=== PATIENT | female | born 1970 | race Caucasian/White ===

== ENCOUNTER 2016-07-01 12:36 | Emergency (ER) | payer SELFPAY ==
[~2016-07-01] VITALS: Wt 72.5 kg
[~2016-07-01 12:36] MED LIST: CYCL5TAB PO; HYDR-3498 PO
[2016-07-01] MEDS ORDERED: ONDANSETRON (ODT) 4 MG TAB ODT STA (14:06)
[2016-07-01] MEDS ORDERED: ACETAMINOPHEN 500 MG TAB PO STA (14:06)
[2016-07-01] MEDS ORDERED: ACET500C5 PO (15:56)
[2016-07-01] MEDS ORDERED: ONDA4TAB14 PO (15:57)
[2016-07-01] MEDS ORDERED: DICY10CA60 PO (15:57)
--- NOTE | 2016-07-01 16:13 | ERD ---
ER Documentation Chief Complaint Date/Time DATE: 07/01/16 TIME: 16:00 Chief Complaint VOMITING X2DAYS/LEFT ARM NUMBNESS/PAIN [id number] HPI Patient is a 45-year-old female who presents ot the emergency department for numerous concerns including left arm numbness and pain, nausea, vomiting and diarrhea. Patient states that her left arm numbness has been present for the last month however the numbness is getting worse. Patient states that initially she had the numbness in her fingers however now it is spreading up her left arm. Patient also reports pain in her left upper arm. 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 Patient denies any trauma or falls. Patient also complaining of chest pain for the last month. Patient also reports shortness of breath. She states this is been a chronic issue for the last year. Patient denies any cough, fever, chills, loss of consciousness. Patient also reports nausea, vomiting and diarrhea which started yesterday. Patient reports vomiting 20 times, nonbilious and nonbloody. Patient also reports diarrhea. Patient also states she has had diarrhea of 10-15 times. Patient states her last menstrual period was 7 days ago. She denies any recent travel or sick contacts. Patient denied any leg swelling, recent surgeries, travel, exogenous estrogen use. ROS All systems reviewed and are negative except as per history of present illness. Medications Home Meds Active Scripts Dicyclomine Hcl* (Bentyl*) 10 Mg Capsule, 10 MG PO QID, #20 CAP Prov:DAINA SILVEIRA PA-C 07/01/16 Ondansetron (Ondansetron Odt) 4 Mg Tab.rapdis, 4 MG PO Q6H Y for NAUSEA AND/OR VOMITING, #30 TAB Prov:DAINA SILVEIRA PA-C 07/01/16 Acetaminophen* (Tylophen*) 500 Mg Capsule, 1 CAP PO Q6H Y for PAIN AND OR ELEVATED TEMP, #20 CAP Prov:DAINA SILVEIRA PA-C 07/01/16 Cyclobenzaprine Hcl* (Cyclobenzaprine Hcl*) 5 Mg Tablet, 5 MG PO Q8H Y for mus, #21 TAB Prov:ELIESER ASHLEY NP 01/02/15 Hydrocodone Bit-Acetaminophen* ([place]*) 5-325 Mg Tab, 1 TAB PO Q6 Y for PAIN, # 20 TAB Prov:ELIESER ASHLEY SERVICE WRITER 01/02/15 Reported Medications [none] Unknown Strength No Conflict Check 01/02/15 Allergies Allergies: Coded Allergies: ibuprofen (Verified Allergy, Unknown, 01/02/15) PMhx/Soc Medical and Surgical Hx: pt denies Medical Hx, pt denies Surgical Hx History of Surgery: No Anesthesia Reaction: No Hx Neurological Disorder: No Hx Respiratory Disorders: No Hx Cardiac Disorders: No Hx Psychiatric Problems: No Hx Miscellaneous Medical Probl: No Hx Alcohol Use: Yes Hx Substance Use: No Hx Tobacco Use: No FmHx Family History: No diabetes Physical Exam Vitals Vital Signs Date Time Temp Pulse Resp B/P Pulse Ox O2 Delivery O2 Flow Rate FiO2 07/01/16 12:38 96.7 89 20 118/58 99 Physical Exam GENERAL: Well-developed, well-nourished male. Appears in no acute distress. HEAD: Normocephalic, atraumatic. No deformities or ecchymosis. EYE: Pupils equal, round, and reactive to light. EOMs intact. No conjunctival erythema. No eye discharge. ENT: External ear without any masses or tenderness. Auditory canals clear bilaterally. TM visualized bilaterally, non-erythematous, non-bulging. Nasal mucosa pink with no discharge. Oropharynx is pink without any tonsillar erythema or exudates. No uvula deviation. No kissing tonsils. NECK: Supple. No meningismus. Normal ROM of the neck. LUNG: Clear to auscultation bilaterally. No rhonchi, wheezing, rales or coarse breath sounds. HEART: Regular rate and rhythm. No murmurs, rubs or gallops. ABDOMEN: Soft, nontender, and nondistended. Positive bowel sounds in all four quadrants. No rebound tenderness, no guarding. (-) McBurney's point tenderness. No CVA tenderness. BACK: No midline tenderness. EXTREMITES: Equal pulses bilaterally. No peripheral clubbing, cyanosis or edema. No unilateral leg swelling. NEUROLOGIC: Alert and oriented to person, place and time. Moving all four extremities. 5/5 strength in all extremities. Normal speech. Steady gait. Equal snath handle assembler strength in bilateral hands. SILT in bilateral upper and lower extremities. Negative Phalen sign. SKIN: Normal color. Warm and dry. No rashes or lesions. Results 24 hrs Laboratory Tests Test 07/01/16 14:17 Troponin I < 0.012ng/ml Current Medications Medications (Trade) Dose Ordered Sig/Kaleb Route PRN Reason Start Time Stop Time Status Last Admin Dose Admin Ondansetron HCl (Zofran Odt) 4 mg ONCE STAT ODT 07/01/16 14:06 07/01/16 14:09 DC 07/01/16 14:20 Acetaminophen (Tylenol Tab) 1,000 mg ONCE STAT PO 07/01/16 14:06 07/01/16 14:09 DC 07/01/16 14:20 Procedures/MDM ED COURSE: The patient was stable throughout ED course. I kept the patient and/or family informed of laboratory and diagnostic imaging results throughout the ED course. EKG: Read by Dr. Pacheco, attending physician. EKG shows normal sinus rhythm at a rate of 76 bpm. No arrhythmias, acute ST elevations or T wave changes were noted. MEDICATIONS GIVEN: Zofran, Tylenol Patient tolerated medication well with no adverse reactions. Patient reported improvement in pain. MEDICAL DECISION MAKING: This is a 45-year-old female presents with numerous concerns including left arm numbness, nausea, vomiting, diarrhea and chest pain. Vital signs were reviewed. Patient was afebrile. Patient was not hypoxic. Cardiac exam was normal. Lung exam was normal. EKG was within normal limits. Trop was negative. Heart score calculated to be 1, low risk. Low suspicion for acute coronary syndrome, arrhythmia or pericarditis. Patient's nausea, vomiting and diarrhea are likely due to a viral syndrome. Low suspicion for appendicitis, SBO, diverticulitis, diverticulosis, UTI, pyelonephritis. I advised the patient that she will need to see her primary care physician for possible nerve conduction study on an outpatient basis for further management of her ongoing arm numbness. Low suspicion for fracture, dislocation, cubital tunnel syndrome, carpal tunnel syndrome. PRESCRIPTIONS: Tylenol, Bentyl, Zofran DISCHARGE: At this time, patient is stable for discharge and outpatient management. I have instructed the patient to follow-up with his/her primary care physician in 1-2 days. If symptoms persist, patient may need to see a specialist for further examinations and testing. I have instructed the patient to promptly return to the ER at any time for any new or worsening symptoms including increased increased pain, fever, nausea, vomiting, numbness, weakness, diaphoresis or LOC. The patient and/or family expressed understanding of and agreement with this plan. All questions were answered. Home care instructions were provided. Departure Diagnosis: Primary Impression: Nausea vomiting and diarrhea Additional Impression: Chest pain Chest pain type: unspecified Qualified Code: R07.9 - Chest pain, unspecified type Condition: Stable Patient Instructions: Chest Pain, Uncertain Cause, Gastroenteritis, Viral (6Y- Adult) Referrals: [facility], [facility] YOU HAVE RECEIVED A MEDICAL SCREENING EXAM AND THE RESULTS INDICATE THAT YOU DO NOT HAVE A CONDITION THAT REQUIRES URGENT TREATMENT IN THE EMERGENCY DEPARTMENT. FURTHER EVALUATION AND TREATMENT OF YOUR CONDITION CAN WAIT UNTIL YOU ARE SEEN IN YOUR DOCTORS OFFICE WITHIN THE NEXT 1-2 DAYS. IT IS YOUR RESPONSIBILITY TO MAKE AN APPOINTMENT FOR FOLOW-UP CARE. IF YOU HAVE A PRIMARY DOCTOR --you should call your primary doctor and schedule an appointment IF YOU DO NOT HAVE A PRIMARY DOCTOR YOU CAN CALL OUR PHYSICIAN REFERRAL HOTLINE AT IF YOU CAN NOT AFFORD TO SEE A PHYSICIAN YOU CAN CHOSE FROM THE FOLLOWING [facility] [address] [facility] [address] [facility]. [facility] [address] [facility] [address] [facility] [address] [facility]. [facility]. [address] [facility]. [facility] YOU HAVE RECEIVED A MEDICAL SCREENING EXAM AND THE RESULTS INDICATE THAT YOU DO NOT HAVE A CONDITION THAT REQUIRES URGENT TREATMENT IN THE EMERGENCY DEPARTMENT. FURTHER EVALUATION AND TREATMENT OF YOUR CONDITION CAN WAIT UNTIL YOU ARE SEEN IN YOUR DOCTORS OFFICE WITHIN THE NEXT 1-2 DAYS. IT IS YOUR RESPONSIBILITY TO MAKE AN APPOINTMENT FOR FOLOW-UP CARE. IF YOU HAVE A PRIMARY DOCTOR --you should call your primary doctor and schedule and appointment IF YOU DO NOT HAVE A PRIMARY DOCTOR YOU CAN CALL OUR PHYSICIAN REFERRAL HOTLINE AT . IF YOU CAN NOT AFFORD TO SEE A PHYSICIAN YOU CAN CHOSE FROM THE FOLLOWING [facility]: [facility] [address] [place] [address] [facility] [address] [place] [address] [facility] [address] [place] [address] Additional Instructions: Call your primary care doctor TOMORROW for an appointment during the next 1-2 days.See the doctor sooner or return here if your condition worsens before your appointment time. Patient will need to follow-up with a photogrammetric stereo compiler for ongoing chest pain and shortness of breath. Patient advised to see her primary care physician for referral. Stress EKG advised on outpatient basis. DAINA SILVEIRA PA-C July 01, 2016 16:12
== END 2016-07-01 16:10 | disposition home or self-care (01) ==
LOC: FTE 12:36
DX: R11.2 Nausea with vomiting, unspecified (principal); R19.7 Diarrhea, unspecified; R07.9 Chest pain, unspecified
CPT/HCPCS: 84484; 93005